=== PATIENT | female | born 1965 | race Two or more races ===

== ENCOUNTER 2021-09-11 02:49 | Inpatient (IN) | payer MEDICARE ==
[~2021-09-11] VITALS: Ht 162.6 cm; Wt 71.6 kg
[2021-09-11] MEDS ORDERED: DIPHENOXYLATE/ATROP 2.5-0.025 MG TABLET PO ONE (04:00)
[2021-09-11] MEDS ORDERED: SODIUM CHLORIDE 0.9% 1,000 ML IV ONE (04:00)
[2021-09-11] MEDS ORDERED: ONDANSETRON HCL 4 MG/2 ML VIAL IVP ONE (04:00)
[2021-09-11] MEDS ORDERED: KETOROLAC TROMETHAMINE 30 MG/ML VIAL IVP ONE (04:00)
[2021-09-11 04:15] LABS: BASOPHILS % (AUTO) 0.2 % (0.0-2.0); EOSINOPHILS % (AUTO) 0 % (1.0-6.0); HEMATOCRIT 43.4 % (36-46); LYMPHOCYTES # (AUTO) 1.4 K/uL (1.0-4.8); LYMPHOCYTES % (AUTO) 6.6 % (22.0-44.0); MEAN CORPUSCULAR HGB CONC 32.2 G/dL (31.0-37.0); MEAN CORPUSCULAR VOLUME 96 fL (80-100); MONOCYTES # (AUTO) 1.8 K/uL (0.1-1.0); MONOCYTES % (AUTO) 8.3 % (2.0-9.0); NEUTROPHILS # (AUTO) 18.7 K/uL (1.8-7.7); NEUTROPHILS % (AUTO) 84.9 % (40.0-70.0); PLATELET COUNT (AUTO) 179 K/uL (150-450); RED CELL DISTRIBUTION WIDTH 15.4 % (11.5-14.5)
[2021-09-11 04:32] LABS: ANION GAP 23 mmol/L (8-16); CALCIUM, TOTAL 9.5 mg/dL (8.8-10.5); CARBON DIOXIDE 14 mmol/L (22-29); CHLORIDE 97 mmol/L (98-107); CREATININE 1.99 mg/dL (0.60-1.30); GLOMERULAR FILTR. RATE CALC 26 mL/min (>60); GLUCOSE,RANDOM 108 mg/dL (70-110); SODIUM SERUM 134 mmol/L (136-145); UREA NITROGEN, BLOOD 32 mg/dL (7-18)
[2021-09-11 04:43] LABS: ALANINE AMINOTRANSFERASE 1248 U/L (12-78); ALBUMIN 2.8 g/dL (3.4-5.0); ALKALINE PHOSPHATASE 237 U/L (46-116); LIPASE 107 U/L (73-393); TOTAL PROTEIN, SERUM 6.5 g/dL (6.4-8.2)
[2021-09-11 04:45] LABS: ASPARTATE AMINOTRANSFERASE 2255 U/L (15-37)
[2021-09-11 05:00] LABS: COVID AG,FIA SOURCE NASAL SWAB
[2021-09-11] MEDS ORDERED: HYDROmorphone 2 MG/ML VIAL IVP ONE (05:30)
[2021-09-11] MEDS ORDERED: ASPIRIN 325 MG TABLET PO ONE (05:30)
[2021-09-11] MEDS ORDERED: ONDANSETRON HCL 4 MG/2 ML VIAL IVP PRN ×2 (06:15→19:45)
[2021-09-11] MEDS ORDERED: 0.9% SODIUM CHLORIDE 10 ML SYRINGE IVP PRN (06:15)
[2021-09-11] MEDS ORDERED: ACETAMINOPHEN 325 MG TABLET PO PRN ×2 (06:15→19:45)
[2021-09-11 06:23] LABS: B-TYPE NATRIURETIC PEPTIDE 2720 pg/mL (0-100)
[2021-09-11 06:33] LABS: D-DIMER 35.2 mg/L FEU (0.00-0.50); INR 3.1 (0.9-1.1); PROTHROMBIN TIME 30.3 SEC (9.4-11.6)
[2021-09-11 06:35] LABS: CREATINE KINASE, TOTAL ONLY 921 U/L (26-192)
[2021-09-11] MEDS ORDERED: NOREPINEPHRINE 4 MG/D5%-WATER 250 ML IV ONE (07:15)
[2021-09-11 08:19] LABS: ABG BASE EXCESS -26.1 mmol/L (-2.0-3.0); ABG CARBOXYHEMOGLOBIN 0.5 % (0.0-1.5); ABG METHEMOGLOBIN 0.4 % (0.0-1.5); ABG OXYGEN SATURATION 98.9 % (95.0-98.0); ABG TOTAL HEMOGLOBIN 14.3 G/dL (12.0-18.0); PO2, ARTERIAL BG 178.2 mmHg (84.0-92.0); SOURCE, BLOOD GAS ARTERIAL; TEMPERATURE, FAHRENHEIT, BG 98.6 FAHREN (96.0-98.6)
[2021-09-11 08:20] LABS: ABG PCO2 13 mmHg (35-45)
[2021-09-11 08:21] LABS: ABG HCO3 8.1 mmol/L (22.0-26.0); O2 DEVICE,BLOOD GAS NC (ROOM AIR); SITE, BLOOD GAS LFT BRACHIAL
[2021-09-11] MEDS ORDERED: LEVOFLOXACIN 750 MG/D5% WATER 150 ML IV ONE (09:00)
[2021-09-11] MEDS ORDERED: ETOMIDATE 2 MG/ML 10 ML VIAL IVP ONE (09:00)
[2021-09-11] MEDS ORDERED: SUCCINYLCHOLINE CHLORIDE 20 MG/ML 10 ML VIAL IVP ONE (09:00)
[2021-09-11] MEDS ORDERED: SODIUM BICARBONATE [ADULT] 8.4% 50 MEQ/50 ML SYRINGE IVP ONE ×2 (09:00→09:16)
[2021-09-11] MEDS ORDERED: RAPID SEQUENCE KIT [RSI] 1 EACH KIT MISC ONE (09:04)
[2021-09-11] MEDS ORDERED: SUCCINYLCHOLINE CHLORIDE 20 MG/ML 10 ML VIAL ONE (09:04)
[2021-09-11] MEDS ORDERED: PROPOFOL 1000 MG/ISO-OSM 100 ML ONE ×2 (09:04→10:50)
[2021-09-11] MEDS ORDERED: LORazepam 2 MG/ML VIAL ONE (09:16)
[2021-09-11 09:21] LABS: LACTIC ACID 15.3 mmol/L (0.4-2.0)
[2021-09-11] MEDS ORDERED: PHENYLEPHRINE 200 MG/D5%-WATER 250 ML IV PRN ×2 (09:45→12:30)
[2021-09-11] MEDS ORDERED: NOREPINEPHRINE 4 MG/D5%-WATER 250 ML IV PRN ×2 (10:00→15:15)
[2021-09-11] MEDS ORDERED: SODIUM CHLORIDE 0.9% 250 ML IV ONE (10:45)
[2021-09-11] MEDS ORDERED: DOPamine 400MG/D5W[STANDARD] 250 ML IV PRN ×2 (10:45→15:30)
[2021-09-11 10:49] LABS: ABG BASE EXCESS -23.9 mmol/L (-2.0-3.0); ABG CARBOXYHEMOGLOBIN 0.3 % (0.0-1.5); ABG METHEMOGLOBIN 0.5 % (0.0-1.5); ABG OXYGEN CONTENT 20.7 mL/dL (15.0-23.0); ABG OXYGEN SATURATION 99.9 % (95.0-98.0); ABG OXYHEMOGLOBIN 99.1 % (94.0-100.0); ABG PCO2 33 mmHg (35-45); ABG TOTAL HEMOGLOBIN 13.8 G/dL (12.0-18.0); SOURCE, BLOOD GAS ARTERIAL; TEMPERATURE, FAHRENHEIT, BG 91.6 FAHREN (96.0-98.6)
[2021-09-11 10:50] LABS: ABG HCO3 8.2 mmol/L (22.0-26.0); ABG PH 6.991 (7.35-7.450); O2 DEVICE,BLOOD GAS VENTILATOR (ROOM AIR); SITE, BLOOD GAS RT BRACHIAL; VT, ABG 450 ml
[2021-09-11 10:51] LABS: PEEP,BG 5 cm H2O
[2021-09-11] MEDS ORDERED: KETAMINE HCL 500 MG in DEXTROSE 5%-WATER 490 ML IV PRN ×4 (11:00)
[2021-09-11] MEDS ORDERED: AZTREONAM 2 GM in DEXTROSE 5%-WATER 50 ML IV ONE (11:00)
[2021-09-11 11:49] LABS: ANION GAP 30 mmol/L (8-16); CALCIUM, TOTAL 9.6 mg/dL (8.8-10.5); CHLORIDE 100 mmol/L (98-107); CREATININE 1.75 mg/dL (0.60-1.30); GLOMERULAR FILTR. RATE CALC 30 mL/min (>60); PHOSPHORUS 8.2 mg/dL (2.5-4.9); POTASSIUM 5.7 mmol/L (3.5-5.1); SODIUM SERUM 139 mmol/L (136-145); UREA NITROGEN, BLOOD 34 mg/dL (7-18)
[2021-09-11 11:54] LABS: CARBON DIOXIDE 9 mmol/L (22-29)
[2021-09-11 11:55] LABS: ACETAMINOPHEN < 2 mcg/mL (10-30); GLUCOSE,RANDOM 40 mg/dL (70-110)
[2021-09-11 12:02] LABS: BASOPHILS % (AUTO) 0.2 % (0.0-2.0); EOSINOPHILS % (AUTO) 0.1 % (1.0-6.0); HEMATOCRIT 39.4 % (36-46); HEMOGLOBIN 11.8 g/dL (12.0-16.0); LYMPHOCYTES # (AUTO) 1.2 K/uL (1.0-4.8); LYMPHOCYTES % (AUTO) 6.3 % (22.0-44.0); MEAN CORPUSCULAR HEMOGLOBIN 31.1 pg (26.0-34.0); MEAN CORPUSCULAR VOLUME 104 fL (80-100); MONOCYTES % (AUTO) 10.2 % (2.0-9.0); NEUTROPHILS # (AUTO) 16.4 K/uL (1.8-7.7); NEUTROPHILS % (AUTO) 83.2 % (40.0-70.0)
[2021-09-11 12:09] LABS: ABG BASE EXCESS -24.8 mmol/L (-2.0-3.0); ABG CARBOXYHEMOGLOBIN 0.3 % (0.0-1.5); ABG METHEMOGLOBIN 0.3 % (0.0-1.5); ABG OXYGEN CONTENT 16.1 mL/dL (15.0-23.0); ABG OXYGEN SATURATION 99.3 % (95.0-98.0); ABG OXYHEMOGLOBIN 98.7 % (94.0-100.0); ABG PCO2 27 mmHg (35-45); ABG TOTAL HEMOGLOBIN 11.2 G/dL (12.0-18.0); PO2, ARTERIAL BG 228.8 mmHg (84.0-92.0); SOURCE, BLOOD GAS ARTERIAL; TEMPERATURE, FAHRENHEIT, BG 91.4 FAHREN (96.0-98.6)
[2021-09-11 12:11] LABS: PLATELET COUNT (AUTO) 85 K/uL (150-450)
[2021-09-11 12:23] LABS: ABG HCO3 7.5 mmol/L (22.0-26.0); O2 DEVICE,BLOOD GAS VENTILATOR (ROOM AIR); SITE, BLOOD GAS ALINE; VT, ABG 450 ml
[2021-09-11 12:24] LABS: PEEP,BG 5 cm H2O
[2021-09-11 12:30] LABS: HEMATOCRIT 37.4 % (36-46); MEAN CORPUSCULAR HEMOGLOBIN 30.8 pg (26.0-34.0); MEAN CORPUSCULAR HGB CONC 29.4 G/dL (31.0-37.0); MEAN CORPUSCULAR VOLUME 105 fL (80-100); PLATELET COUNT (AUTO) 79 K/uL (150-450); RED BLOOD CELL COUNT(AUTO) 3.57 MIL/uL (4.00-5.20); RED CELL DISTRIBUTION WIDTH 16.3 % (11.5-14.5)
[2021-09-11] MEDS ORDERED: SODIUM BICARBONATE 150 MEQ in DEXTROSE 5%-WATER 1,000 ML IV ONE (12:30)
[2021-09-11] MEDS ORDERED: VASOPRESSIN 40 UNITS in DEXTROSE 5%-WATER 98 ML IV PRN (12:30)
[2021-09-11] MEDS ORDERED: MetroNIDAZOLE 500 MG/NACL 100 ML IV ONE (12:30)
[2021-09-11 12:48] LABS: BAND NEUTROPHILS % (MANUAL) 2 % (0-5); LYMPHOCYTES % (MANUAL) 11 % (22-44); MONOCYTES % (MANUAL) 9 % (2-9); SEGMENTED NEUTROPHILS % 78 % (40-70)
[2021-09-11 12:49] LABS: PLATELET MORPHOLOGY COMMENT GIANT PLTS PRESENT
[2021-09-11] MEDS ORDERED: IOHEXOL 350 MG/ML 100 ML VIAL ONE (13:37)
[2021-09-11 13:57] LABS: GLUCOMETER DEV NAME(LOC) ERT.5; GLUCOSE,POINT OF CARE 97 MG/DL (70-110)
[2021-09-11] MEDS: KETAMINE HCL 500 MG in DEXTROSE 5%-WATER 490 ML IV PRN (15:15)
[2021-09-11] MEDS ORDERED: NOREPINEPHRINE BITARTRATE 8 MG in DEXTROSE 5%-WATER 242 ML IV PRN (15:15)
[2021-09-11] MEDS ORDERED: WATER IV PRN (15:30)
[2021-09-11] MEDS ORDERED: DEXTROSE 5% IV PRN (15:30)
[2021-09-11] MEDS ORDERED: KETAMINE HCL IV PRN (15:30)
[2021-09-11] MEDS: DOPamine 800MG/D5W[DOUBLE] 250 ML IV PRN (15:44)
[2021-09-11] MEDS: NOREPINEPHRINE BITARTRATE 16 MG in DEXTROSE 5%-WATER 234 ML IV PRN (15:46)
[2021-09-11 16:00] VITALS: BP 107/71
[2021-09-11] MEDS ORDERED: *CLINICAL-AZTREONAM DOSING CLINICAL ONE (16:00)
[2021-09-11 16:03] LABS: ABG BASE EXCESS -21.4 mmol/L (-2.0-3.0); ABG CARBOXYHEMOGLOBIN 0.4 % (0.0-1.5); ABG METHEMOGLOBIN 0.1 % (0.0-1.5); ABG OXYGEN CONTENT 18.6 mL/dL (15.0-23.0); ABG OXYGEN SATURATION 99.7 % (95.0-98.0); ABG OXYHEMOGLOBIN 99.2 % (94.0-100.0); ABG PCO2 24 mmHg (35-45); ABG TOTAL HEMOGLOBIN 12.5 G/dL (12.0-18.0); PO2, ARTERIAL BG 415.8 mmHg (84.0-92.0); SOURCE, BLOOD GAS ARTERIAL
[2021-09-11 16:04] LABS: ABG HCO3 9.9 mmol/L (22.0-26.0); ABG PH 7.139 (7.35-7.450); O2 DEVICE,BLOOD GAS VENTILATOR (ROOM AIR); PEEP,BG 5 cm H2O; SITE, BLOOD GAS ARTERIAL LINE; SPONTANEOUS VT, BG 420 ml; VT, ABG 450 ml
[2021-09-11] MEDS ORDERED: SODIUM CHLORIDE 0.9% 2,000 ML ONE (16:24)
[2021-09-11] MEDS ORDERED: HEPARIN SODIUM 25000 UNITS/D5W 250 ML IV SCH (16:30)
[2021-09-11] MEDS: AZTREONAM 2 GM in DEXTROSE 5%-WATER 50 ML IV SCH (17:07)
[2021-09-11] MEDS: POTASSIUM CHLORIDE 15 MEQ in NXSTAGE RFP-402 K0/CA3 5,000 ML IRRIG PRN (19:27)
[2021-09-11] MEDS ORDERED: DEXTROSE 50%-WATER 25 GM/50 ML SYRINGE IVP ONE (19:36)
[2021-09-11] MEDS ORDERED: MAGNESIUM HYDROXIDE SUSPENSION 30 ML UDCUP PO PRN (19:45)
[2021-09-11] MEDS ORDERED: IPRATROPIUM BROMIDE 0.5 MG/2.5 ML NEB SOLUTION NEB PRN (19:45)
[2021-09-11] MEDS ORDERED: ALBUTEROL SULFATE 2.5 MG/0.5 ML NEB SOLUTION NEB PRN (19:45)
[2021-09-11] MEDS ORDERED: BISACODYL 10 MG RECTAL RECTAL SUPPOSITORY PR PRN (19:45)
[2021-09-11 19:58] LABS: HEMOGLOBIN 10.9 g/dL (12.0-16.0)
[2021-09-11 20:00] VITALS: BP 102/62
[2021-09-11 20:07] LABS: HEMATOCRIT 35.1 % (36-46); MEAN CORPUSCULAR HEMOGLOBIN 30.9 pg (26.0-34.0); MEAN CORPUSCULAR VOLUME 100 fL (80-100); PLATELET COUNT (AUTO) 65 K/uL (150-450); RED BLOOD CELL COUNT(AUTO) 3.52 MIL/uL (4.00-5.20); RED CELL DISTRIBUTION WIDTH 15.8 % (11.5-14.5)
[2021-09-11 20:20] LABS: CALCIUM, TOTAL 7.7 mg/dL (8.8-10.5); CREATININE 2.11 mg/dL (0.60-1.30); POTASSIUM 5.4 mmol/L (3.5-5.1)
[2021-09-11 20:31] LABS: ALBUMIN 2.1 g/dL (3.4-5.0); BILIRUBIN,TOTAL 4.4 mg/dL (0.1-1.0); MAGNESIUM 2.1 mg/dL (1.80-2.40); PHOSPHORUS 8.8 mg/dL (2.5-4.9); TOTAL PROTEIN, SERUM 4.8 g/dL (6.4-8.2)
[2021-09-11 20:57] LABS: BAND NEUTROPHILS % (MANUAL) 5 % (0-5); LYMPHOCYTES % (MANUAL) 7 % (22-44); MONOCYTES % (MANUAL) 8 % (2-9); SEGMENTED NEUTROPHILS % 80 % (40-70)
[2021-09-11] MEDS: PANTOPRAZOLE SODIUM 40 MG/VIAL IVP SCH (22:42)
[2021-09-11] MEDS: ETHYL ALCOHOL 62% ANTISEPTIC NASAL INHALANT 0.6 ML AMPUL NASAL SCH (22:42)
[2021-09-11] MEDS: MetroNIDAZOLE 500 MG/NACL 100 ML IV SCH (23:59)
[2021-09-12] VITALS (7 sets, daily range): BP systolic 55–100; BP diastolic 41–56
[2021-09-12] MEDS ORDERED: PHENYLEPHRINE HCL 400 MG in DEXTROSE 5%-WATER 210 ML IV PRN (00:15)
[2021-09-12] MEDS: AZTREONAM 2 GM in DEXTROSE 5%-WATER 50 ML IV SCH ×3 (00:47→17:16)
[2021-09-12] MEDS: POTASSIUM CHLORIDE 15 MEQ in NXSTAGE RFP-402 K0/CA3 5,000 ML IRRIG PRN ×2 (00:48→14:57)
[2021-09-12] MEDS ORDERED: VASOPRESSIN 40 UNITS in DEXTROSE 5%-WATER 98 ML IV PRN (01:45)
[2021-09-12] MEDS: DOPamine 800MG/D5W[DOUBLE] 250 ML IV PRN ×2 (02:12→13:14)
[2021-09-12] MEDS ORDERED: HEPARIN SODIUM,PORCINE 1,000 UNITS/ML VIAL ONE (03:23)
[2021-09-12] MEDS ORDERED: HEPARIN SODIUM,PORCINE 1,000 UNITS/ML VIAL IVP PRN ×2 (03:45→18:45)
[2021-09-12] MEDS: NOREPINEPHRINE BITARTRATE 16 MG in DEXTROSE 5%-WATER 234 ML IV PRN ×2 (04:06→15:43)
[2021-09-12 04:51] LABS: ABG BASE EXCESS -15.9 mmol/L (-2.0-3.0); ABG CARBOXYHEMOGLOBIN 0.2 % (0.0-1.5); ABG HCO3 13.4 mmol/L (22.0-26.0); ABG METHEMOGLOBIN 0.3 % (0.0-1.5); ABG OXYGEN CONTENT 16.9 mL/dL (15.0-23.0); ABG OXYGEN SATURATION 99.8 % (95.0-98.0); ABG OXYHEMOGLOBIN 99.3 % (94.0-100.0); ABG PCO2 28 mmHg (35-45); ABG PH 7.237 (7.35-7.450); ABG TOTAL HEMOGLOBIN 11.5 G/dL (12.0-18.0); PO2, ARTERIAL BG 325.2 mmHg (84.0-92.0); SOURCE, BLOOD GAS ARTERIAL; TEMPERATURE, FAHRENHEIT, BG 98.2 FAHREN (96.0-98.6)
[2021-09-12 04:52] LABS: O2 DEVICE,BLOOD GAS VENTILATOR (ROOM AIR); PEEP,BG 5 cm H2O; SITE, BLOOD GAS ARTERIAL LINE; VT, ABG 450 ml
[2021-09-12 05:17] LABS: HEMATOCRIT 33.7 % (36-46); HEMOGLOBIN 10.8 g/dL (12.0-16.0); MEAN CORPUSCULAR HEMOGLOBIN 31.5 pg (26.0-34.0); MEAN CORPUSCULAR HGB CONC 32.1 G/dL (31.0-37.0); MEAN CORPUSCULAR VOLUME 98 fL (80-100); PLATELET COUNT (AUTO) 72 K/uL (150-450); RED BLOOD CELL COUNT(AUTO) 3.43 MIL/uL (4.00-5.20); RED CELL DISTRIBUTION WIDTH 15.1 % (11.5-14.5)
[2021-09-12 05:34] LABS: BILIRUBIN,TOTAL 5.8 mg/dL (0.1-1.0); CALCIUM, TOTAL 7.5 mg/dL (8.8-10.5); CREATININE 2.33 mg/dL (0.60-1.30); MAGNESIUM 1.9 mg/dL (1.80-2.40); PHOSPHORUS 8.3 mg/dL (2.5-4.9); POTASSIUM 5.9 mmol/L (3.5-5.1); TOTAL PROTEIN, SERUM 4.5 g/dL (6.4-8.2)
[2021-09-12] MEDS: MetroNIDAZOLE 500 MG/NACL 100 ML IV SCH ×2 (08:39→15:44)
[2021-09-12] MEDS: PANTOPRAZOLE SODIUM 40 MG/VIAL IVP SCH ×3 (08:39→21:30)
[2021-09-12] MEDS: ETHYL ALCOHOL 62% ANTISEPTIC NASAL INHALANT 0.6 ML AMPUL NASAL SCH ×2 (08:39→21:30)
[2021-09-12] MEDS ORDERED: SODIUM CHLORIDE 0.9% 2,000 ML ONE (08:51)
[2021-09-12 09:14] LABS: BAND NEUTROPHILS % (MANUAL) 14 % (0-5); LYMPHOCYTES % (MANUAL) 11 % (22-44); MONOCYTES % (MANUAL) 4 % (2-9); SEGMENTED NEUTROPHILS % 71 % (40-70)
[2021-09-12] MEDS ORDERED: *CLINICAL-LEVOFLOXACIN IVPB DOSING CLINICAL ONE (10:45)
[2021-09-12 13:59] LABS: ABG BASE EXCESS -18.9 mmol/L (-2.0-3.0); ABG CARBOXYHEMOGLOBIN 0.5 % (0.0-1.5); ABG HCO3 11.3 mmol/L (22.0-26.0); ABG METHEMOGLOBIN 0.3 % (0.0-1.5); ABG OXYGEN SATURATION 99.5 % (95.0-98.0); ABG OXYHEMOGLOBIN 98.7 % (94.0-100.0); ABG PCO2 26 mmHg (35-45); ABG TOTAL HEMOGLOBIN 10.5 G/dL (12.0-18.0); PO2, ARTERIAL BG 187.1 mmHg (84.0-92.0); SOURCE, BLOOD GAS ARTERIAL; TEMPERATURE, FAHRENHEIT, BG 98.6 FAHREN (96.0-98.6)
[2021-09-12 14:00] LABS: ABG PH 7.182 (7.35-7.450); SITE, BLOOD GAS ARTERIAL LINE
[2021-09-12 14:01] LABS: ABG A-A DIFF O2 284.3 mmHg (10-20.0); O2 DEVICE,BLOOD GAS VENTILATOR (ROOM AIR); PEEP,BG 5 cm H2O; VT, ABG 450 ml
[2021-09-12] MEDS: KETAMINE HCL 500 MG in DEXTROSE 5%-WATER 490 ML IV PRN (15:42)
[2021-09-12] MEDS ORDERED: SODIUM CHLORIDE 0.9% 500 ML IV ONE (16:17)
[2021-09-12] MEDS ORDERED: HEPARIN SODIUM,PORCINE 100 UNITS/ML 5 ML VIAL IVP ONE (18:00)
[2021-09-12] MEDS ORDERED: SODIUM BICARBONATE [ADULT] 8.4% 50 MEQ/50 ML SYRINGE IVP ONE (18:00)
[2021-09-12] MEDS ORDERED: HEPARIN SODIUM 25000 UNITS/D5W 250 ML IV SCH (18:00)
[2021-09-13] MEDS ORDERED: LEVOFLOXACIN 500 MG/D5% WATER 100 ML IV SCH (17:00)
== END 2021-09-12 22:16 | DRG 871 ==
LOC: EMS 02:50 → ICU 12:20
PROVIDERS: ADMIT Hospitalist; ATTEND Hospitalist
PROC: 5A1945Z Respiratory Ventilation, 24-96 Consecutive Hours (ICD-10-PCS; principal; 2021-09-11)
PROC: 0BH17EZ Insertion of Endotracheal Airway into Trachea, Via Natural or Artificial Opening (ICD-10-PCS; 2021-09-11)
DX: A41.9 Sepsis, unspecified organism (principal); I21.4 Non-ST elevation (NSTEMI) myocardial infarction; J96.00 Acute respiratory failure, unspecified whether with hypoxia or hypercapnia; R65.21 Severe sepsis with septic shock; K72.00 Acute and subacute hepatic failure without coma; E87.4 Mixed disorder of acid-base balance; N17.9 Acute kidney failure, unspecified; I50.20 Unspecified systolic (congestive) heart failure; I13.0 Hypertensive heart and chronic kidney disease with heart failure and stage 1 through stage 4 chronic kidney disease, or unspecified chronic kidney disease; Z99.11 Dependence on respirator [ventilator] status; R18.8 Other ascites; A04.9 Bacterial intestinal infection, unspecified; E86.0 Dehydration; F15.10 Other stimulant abuse, uncomplicated; F10.10 Alcohol abuse, uncomplicated; E88.09 Other disorders of plasma-protein metabolism, not elsewhere classified; I46.9 Cardiac arrest, cause unspecified; I34.0 Nonrheumatic mitral (valve) insufficiency; Z20.822 Contact with and (suspected) exposure to COVID-19; K81.9 Cholecystitis, unspecified; R68.0 Hypothermia, not associated with low environmental temperature; N18.9 Chronic kidney disease, unspecified; Z85.89 Personal history of malignant neoplasm of other organs and systems; Z88.0 Allergy status to penicillin; Z87.891 Personal history of nicotine dependence; Z98.1 Arthrodesis status; Z90.49 Acquired absence of other specified parts of digestive tract
CPT/HCPCS: 31500; 36600; 71045; 74176; 76770; 80048; 80053; 82550; 82805; 82962; 83605; 83690; 83735; 83880; 84100; 84484; 85025; 85379; 85610; 85730; 87040; 87070; 87081; 90947; 92950; 93005; 93306; 94002; 94003; 99291; C9113; G0378; G0480; G0481; J0330; J1170; J1265; J1644; J1885; J1956; J2060; J2370; J2405; J2704; J3480; J3490; J7030; J7040; J7050; J7060; Q9967; 36415-L1; 36415-TC